=== PATIENT | male | born 1975 | race Caucasian/White ===

== ENCOUNTER 2019-04-29 17:52 | Emergency (ER) | payer BC ==
[~2019-04-29] VITALS: Ht 172.7 cm; Wt 99.8 kg
[2019-04-29] MEDS ORDERED: NIASPAN ER 101000 M1 PO (18:16)
[2019-04-29] MEDS ORDERED: LEXAPRO20 MG PO (18:16)
[2019-04-29] MEDS ORDERED: HYDROCHLOROTHIA50 MG PO (18:16)
[2019-04-29] MEDS ORDERED: PEPCID20 MG PO (18:17)
[2019-04-29] MEDS ORDERED: CADUET 5 MG-101 EACH PO (18:17)
[2019-04-29] MEDS ORDERED: COZAAR 25 MG TA25 M1 PO (18:17)
[2019-04-29] MEDS ORDERED: UNICOMPLEX M TA1 TA1 PO (18:17)
[2019-04-29 18:38] LABS: ABSOLUTE NEUTROPHILS 5.7 thou/uL (1.4-8.2); BASOPHILS 0.9 % (0.0-2.0); EOSINOPHILS 0.4 % (0.0-3.0); HEMATOCRIT 43.5 % (42.0-52.0); HEMOGLOBIN 15.4 gm/dL (14.0-18.0); LYMPHOCYTES 19.4 % (24.0-44.0); MCH 30.2 pg (26.0-34.0); MCHC 35.5 g/dL (28.0-37.0); MCV 85.2 fL (80.0-100.0); MONOCYTES 7.7 % (1.0-8.0); PLATELET COUNT 292 thou/uL (150-400); POLYS 71.6 % (36.0-66.0); RBC 5.11 mil/uL (4.50-6.00); RDW 13.8 % (10.5-14.5)
[2019-04-29 18:44] LABS: ANION GAP 13 mmol/L (7-16); BUN 7 mg/dL (7-18); CALCIUM 9.6 mg/dL (8.5-10.1); CHLORIDE 98 mmol/L (98-107); CO2 26 mmol/L (21-32); CREATININE 0.9 mg/dL (0.7-1.3); GLUCOSE 98 mg/dL (74-106); POTASSIUM 3.3 mmol/L (3.5-5.1); SODIUM 137 mmol/L (136-145)
[2019-04-29 18:54] LABS: ALBUMIN 4.3 g/dL (3.4-5.0); SGOT 24 U/L (15-37); SGPT 39 U/L (30-65); TOTAL BILIRUBIN 0.4 mg/dL (<0.1-1.0); TOTAL PROTEIN 8.3 g/dL (6.4-8.2); TROPONIN-I <0.06 ng/mL (<0.06)
[2019-04-29] MEDS ORDERED: CARAFATE 1 GM TA1 G1 PO (20:22)
[2019-04-29] MEDS ORDERED: ONDANSETRON HCL4 M2 PO (20:22)
[2019-04-29 20:50] VITALS: BP 118/80
--- NOTE | 2019-04-30 07:59 | EKG ---
[place] [address] [facility] [employer] [place] [address] ELECTROCARDIOGRAM REPORT Name: ROSA HATFIELD Room #: DEP Gisselle#: [id number] ������������������ Admission: 04/29/19 ������������������ Attend Phys: Discharge: 04/29/19 ������������������ Date of : 73 Report #: [id number] ����������������������������������������������������������������� [id number] THIS REPORT FOR: //name// [facility] ED Test Date: 2019-04-29 Test Time: 17:57:57 Pat Name: ROSA HATFIELD Department: Room: Gender: M Senior [employer] Developer: MARCELLUS : 1975 Requested By: Duke Wilkinson Order Number: [id number] MD: Angel Nguyen Measurements Intervals [place] Rate: 96 P: 48 [place]: 131 QRS: 62 QRSD: 124 T: -1 QT: 352 QTc: 445 Interpretive Statements Sinus rhythm Right bundle branch block No previous ECG available for comparison Electronically Signed On 04-30-2019 7:59:49 CDT by Angel Nguyen [email or web address] ��������������������������������������������� <ELECTRONICALLY SIGNED> ���������������������������������������� By: Angel Nguyen MD, [facility] ��������������������������������������������� 04/30/19 [id number] Angel Nguyen MD, FACC /EPI
== END 2019-04-29 20:51 | disposition home or self-care (01) ==
LOC: ER 17:52
PROVIDERS: Emergency Medicine
DX: R07.89 Other chest pain (principal); I10 Essential (primary) hypertension; K21.9 Gastro-esophageal reflux disease without esophagitis; F32.9 Major depressive disorder, single episode, unspecified; F41.9 Anxiety disorder, unspecified; Z88.8 Allergy status to other drugs, medicaments and biological substances